=== PATIENT | female | born 1930 | race Caucasian/White ===

== ENCOUNTER → 2016-07-21 | Outpatient (CLI) | payer OTHER ==
[2016-07-21 18:04] LABS: BLOOD UREA NITROGEN 28 mg/dl (7-18); BUN/CREATININE RATIO 21.6 (10-20); CARBON DIOXIDE 30 mmol/L (21-32); CHLORIDE 99 mmol/L (98-107); GLUCOSE 109 mg/dl (70-99); MAGNESIUM 1.7 mg/dl (1.8-2.4); PHOSPHORUS 2.6 mg/dl (2.5-4.9); POTASSIUM 3.9 mmol/L (3.5-5.1); SODIUM 138 mmol/L (136-145)
== END | disposition home or self-care (01) ==
LOC: C.LABMFLN 09:39
PROVIDERS: ATTEND Family Medicine
DX: E83.42 Hypomagnesemia (principal); N18.9 Chronic kidney disease, unspecified

== ENCOUNTER → 2016-11-10 | Outpatient (CLI) | payer OTHER ==
[2016-11-10 17:44] LABS: BASO % 0.6 %; BASO ABS # 0.05 K/uL (0-0.2); COMPLETE YES; EOS % 0.8 %; HEMATOCRIT 40.6 % (37-47); IG% 0.3 %; LYMPH % 23.3 %; LYMPH ABS # 1.86 K/uL (1.2-3.4); MEAN CORPUSCULAR HEMOGLOBIN 29.5 pg (25-34); MEAN CORPUSCULAR HGB CONC 32.8 g/dl (32-36); MEAN PLATELET VOLUME 10.3 fL (7.4-10.4); PLATELET COUNT 287 K/uL (130-400); RED BLOOD COUNT 4.51 M/uL (4.2-5.4); WHITE BLOOD COUNT 7.98 K/uL (4.8-10.8)
[2016-11-10 18:08] LABS: ALT/SGPT 23 U/L (12-78); AMYLASE 44 U/L (25-115); BLOOD UREA NITROGEN 24 mg/dl (7-18); BUN/CREATININE RATIO 16.1 (10-20); CALCIUM 9.1 mg/dl (8.5-10.1); CARBON DIOXIDE 29 mmol/L (21-32); CHLORIDE 105 mmol/L (98-107); GLUCOSE 93 mg/dl (70-99); POTASSIUM 3.8 mmol/L (3.5-5.1); SODIUM 141 mmol/L (136-145)
[2016-11-10 18:11] LABS: ALKALINE PHOSPHATASE 43 U/L (45-117); AST/SGOT 17 U/L (15-37); PHOSPHORUS 1.6 mg/dl (2.5-4.9)
== END | disposition home or self-care (01) ==
LOC: C.LABMFLN 14:47
PROVIDERS: ATTEND Family Medicine
DX: R11.0 Nausea (principal); I50.9 Heart failure, unspecified; K86.2 Cyst of pancreas